=== PATIENT | male | born 1985 | race Two or more races ===

== ENCOUNTER 2023-09-14 19:52 | Emergency (ER) | payer SELFPAY ==
[~2023-09-14] VITALS: Ht 162.6 cm; Wt 65.9 kg
[2023-09-14 21:00] LABS: BASOPHILS % (AUTO) 0.6 % (0.0-2.0); EOSINOPHILS % (AUTO) 0.7 % (1.0-6.0); HEMATOCRIT 38.4 % (41-53); LYMPHOCYTES # (AUTO) 3.4 K/uL (1.0-4.8); MEAN CORPUSCULAR HEMOGLOBIN 34.3 pg (26.0-34.0); MEAN CORPUSCULAR HGB CONC 33.9 G/dL (31.0-37.0); MEAN CORPUSCULAR VOLUME 101 fL (80-100); MONOCYTES # (AUTO) 0.7 K/uL (0.1-1.0); MONOCYTES % (AUTO) 12.6 % (2.0-9.0); NEUTROPHILS # (AUTO) 1.6 K/uL (1.8-7.7); NEUTROPHILS % (AUTO) 28.1 % (40.0-70.0); PLATELET COUNT (AUTO) 159 K/uL (150-450); RED BLOOD CELL COUNT(AUTO) 3.79 MIL/uL (4.50-5.90); RED CELL DISTRIBUTION WIDTH 14.4 % (11.5-14.5); WHITE BLOOD COUNT (AUTO) 5.8 K/uL (4.5-11.0)
[2023-09-14 21:14] LABS: ANION GAP 7 mmol/L (8-16); CALCIUM, TOTAL 8.4 mg/dL (8.8-10.5); CARBON DIOXIDE 26 mmol/L (22-29); CHLORIDE 107 mmol/L (98-107); CREATININE 0.59 mg/dL (0.60-1.30); GLOMERULAR FILTR. RATE CALC > 60 mL/min (>60); GLUCOSE,RANDOM 127 mg/dL (70-110); SODIUM SERUM 140 mmol/L (136-145); UREA NITROGEN, BLOOD 5 mg/dL (7-18)
[2023-09-14 21:18] LABS: ALANINE AMINOTRANSFERASE 28 U/L (12-78); ALBUMIN 3.2 g/dL (3.4-5.0); ALKALINE PHOSPHATASE 226 U/L (46-116); ASPARTATE AMINOTRANSFERASE 52 U/L (15-37); BILIRUBIN,TOTAL 0.9 mg/dL (0.1-1.0); TOTAL PROTEIN, SERUM 8.3 g/dL (6.4-8.2)
[2023-09-14 21:23] LABS: ALCOHOL, BLOOD (SERUM) 406 mg/dL (0-10)
[2023-09-14 21:53] LABS: TROPONIN I-HIGH SENSITIVITY 12 ng/L (<76)
[2023-09-14 22:31] VITALS: TEMP 98.3
[2023-09-15] MEDS ORDERED: SODIUM CHLORIDE 0.9% 1,000 ML IV ONE
[2023-09-15 05:50] VITALS: BP 107/69; PULSE 63; RESP 16
== END 2023-09-15 06:27 | disposition home or self-care (01) ==
LOC: EMS 19:53
DX: F10.229 Alcohol dependence with intoxication, unspecified (principal); Y90.9 Presence of alcohol in blood, level not specified
CPT/HCPCS: 99284; 80053; 84484; 85025; 36415; 93005; 96360; G0480; J7030

== ENCOUNTER 2025-04-07 18:56 | Inpatient (IN) | payer SELFPAY ==
[~2025-04-07] VITALS: Ht 165.1 cm; Wt 68.2 kg
[2025-04-07 19:09] VITALS: TEMP 98.1
[2025-04-07 19:34] LABS: ANION GAP 7 mmol/L (8-16); CALCIUM, TOTAL 8.1 mg/dL (8.8-10.5); CARBON DIOXIDE 29 mmol/L (22-29); CHLORIDE 108 mmol/L (98-107); CREATININE 0.55 mg/dL (0.60-1.30); GLOMERULAR FILTR. RATE CALC > 60 mL/min (>60); GLUCOSE,RANDOM 131 mg/dL (70-110); POTASSIUM 3.5 mmol/L (3.5-5.1); SODIUM SERUM 144 mmol/L (136-145); UREA NITROGEN, BLOOD 4 mg/dL (7-18)
[2025-04-07 19:35] LABS: BASOPHILS % (AUTO) 1.1 % (0.0-2.0); HEMATOCRIT 33.7 % (41-53); HEMOGLOBIN 11.5 g/dL (13.5-17.5); LYMPHOCYTES # (AUTO) 1.9 K/uL (1.0-4.8); LYMPHOCYTES % (AUTO) 45.5 % (22.0-44.0); MEAN CORPUSCULAR HEMOGLOBIN 35.9 pg (26.0-34.0); MEAN CORPUSCULAR HGB CONC 34.1 G/dL (31.0-37.0); MEAN CORPUSCULAR VOLUME 105 fL (80-100); MONOCYTES # (AUTO) 0.5 K/uL (0.1-1.0); MONOCYTES % (AUTO) 11.8 % (2.0-9.0); NEUTROPHILS # (AUTO) 1.7 K/uL (1.8-7.7); NEUTROPHILS % (AUTO) 40.6 % (40.0-70.0); PLATELET COUNT (AUTO) 69 K/uL (150-450); RED CELL DISTRIBUTION WIDTH 15.5 % (11.5-14.5); WHITE BLOOD COUNT (AUTO) 4.1 K/uL (4.5-11.0)
[2025-04-07 19:37] LABS: RBC MORPHOLOGY COMMENT ABNORMAL RBC MORPH
[2025-04-07 19:39] LABS: ALBUMIN 2.6 g/dL (3.4-5.0); BILIRUBIN,DIRECT 1.1 mg/dL (0.00-0.20); BILIRUBIN,TOTAL 1.7 mg/dL (0.1-1.0); TOTAL PROTEIN, SERUM 7.9 g/dL (6.4-8.2)
[2025-04-07] MEDS: SODIUM CHLORIDE 0.9% 1,000 ML IV ONE (20:29)
[2025-04-07] MEDS ORDERED: ONDANSETRON HCL 4 MG/2 ML VIAL IVP PRN (21:30)
[2025-04-07] MEDS ORDERED: 1: MAGNESIUM SULFATE 2 GM, MVI, ADULT NO.1 WITH VIT K 10 ML, THIAMINE 100 MG, FOLIC ACID IV SCH (22:00)
[2025-04-07] MEDS: 1: MAGNESIUM SULFATE 2 GM, MVI, ADULT NO.1 WITH VIT K 10 ML, THIAMINE 100 MG, FOLIC ACID IV SCH (22:36)
[2025-04-07] MEDS: HEPARIN SODIUM,PORCINE 5,000 UNITS/ML VIAL SQ SCH (23:09)
[2025-04-08 05:16] LABS: BASOPHILS % (AUTO) 2.6 % (0.0-2.0); EOSINOPHILS % (AUTO) 2.6 % (1.0-6.0); HEMATOCRIT 34.5 % (41-53); HEMOGLOBIN 11.7 g/dL (13.5-17.5); LYMPHOCYTES # (AUTO) 1.4 K/uL (1.0-4.8); LYMPHOCYTES % (AUTO) 48.5 % (22.0-44.0); MEAN CORPUSCULAR VOLUME 106 fL (80-100); MONOCYTES # (AUTO) 0.4 K/uL (0.1-1.0); MONOCYTES % (AUTO) 13.2 % (2.0-9.0); NEUTROPHILS # (AUTO) 0.9 K/uL (1.8-7.7); NEUTROPHILS % (AUTO) 33.1 % (40.0-70.0); PLATELET COUNT (AUTO) 68 K/uL (150-450); RED BLOOD CELL COUNT(AUTO) 3.26 MIL/uL (4.50-5.90); RED CELL DISTRIBUTION WIDTH 15.6 % (11.5-14.5); WHITE BLOOD COUNT (AUTO) 2.9 K/uL (4.5-11.0)
[2025-04-08 05:33] LABS: ANION GAP 7 mmol/L (8-16); CALCIUM, TOTAL 7.6 mg/dL (8.8-10.5); CARBON DIOXIDE 29 mmol/L (22-29); CHLORIDE 107 mmol/L (98-107); CREATININE 0.45 mg/dL (0.60-1.30); GLOMERULAR FILTR. RATE CALC > 60 mL/min (>60); GLUCOSE,RANDOM 142 mg/dL (70-110); POTASSIUM 3.1 mmol/L (3.5-5.1); SODIUM SERUM 143 mmol/L (136-145); UREA NITROGEN, BLOOD 2 mg/dL (7-18)
[2025-04-08 07:47] VITALS: BP 107/69; PULSE 68; RESP 15; O2SAT 98
[2025-04-08] MEDS: POTASSIUM CHLORIDE 20 MEQ ER TABLET PO ONE (08:00)
[2025-04-08] MEDS ORDERED: OXYGEN THERAPY IH SCH (08:00)
== END 2025-04-08 13:40 | disposition left against medical advice (07) | DRG 91 ==
LOC: EMS 19:00 → EDH 21:25 → EMS 21:44 → EDBD 21:44 → EDBEDREQ 22:33 → 6S 04-08 09:25
PROVIDERS: ADMIT Internal Medicine; ATTEND Internal Medicine
DX: G92.8 Other toxic encephalopathy (principal); J69.0 Pneumonitis due to inhalation of food and vomit; J96.01 Acute respiratory failure with hypoxia; F10.929 Alcohol use, unspecified with intoxication, unspecified; Y90.8 Blood alcohol level of 240 mg/100 ml or more; S00.12XA Contusion of left eyelid and periocular area, initial encounter; X58.XXXA Exposure to other specified factors, initial encounter; Y93.89 Activity, other specified; Y92.89 Other specified places as the place of occurrence of the external cause; Y99.8 Other external cause status
CPT/HCPCS: 70450; 71045; 80048; 80076; 83735; 85025; 96361; 96365; 99285; G0378; G0480; J1644; J3411; J3475; J3490; J7030; J7060; 36415-L1; 36415-TC

== ENCOUNTER 2025-04-21 13:43 | Emergency (ER) | payer OTHER ==
[~2025-04-21] VITALS: Ht 170.2 cm; Wt 72.1 kg
[2025-04-21 15:04] LABS: PLATELET COUNT (AUTO) 105 K/uL (150-450); RED BLOOD CELL COUNT(AUTO) 3.25 MIL/uL (4.50-5.90); RED CELL DISTRIBUTION WIDTH 14.8 % (11.5-14.5); WHITE BLOOD COUNT (AUTO) 4.0 K/uL (4.5-11.0)
[2025-04-21 15:14] LABS: CALCIUM, TOTAL 8.1 mg/dL (8.8-10.5); CREATININE 0.65 mg/dL (0.60-1.30); GLOMERULAR FILTR. RATE CALC > 60 mL/min (>60); GLUCOSE,RANDOM 124 mg/dL (70-110); SODIUM SERUM 143 mmol/L (136-145); UREA NITROGEN, BLOOD 6 mg/dL (7-18)
[2025-04-21 15:18] LABS: ASPARTATE AMINOTRANSFERASE 86.0 U/L (15-37); TOTAL PROTEIN, SERUM 7.4 g/dL (6.4-8.2)
[2025-04-21 15:21] LABS: TROPONIN I-HIGH SENSITIVITY 12 ng/L (<76)
[2025-04-21 15:34] LABS: RBC MORPHOLOGY COMMENT ABNORMAL RBC MORPH
[2025-04-21 15:57] LABS: ALCOHOL, BLOOD (SERUM) 448.0 mg/dL (0-10)
[2025-04-21 18:35] VITALS: BP 121/75; PULSE 75; RESP 16; TEMP 98.005280; O2SAT 95
== END 2025-04-21 20:35 | disposition left against medical advice (07) ==
LOC: EMS 13:46
DX: F10.129 Alcohol abuse with intoxication, unspecified (principal); K70.30 Alcoholic cirrhosis of liver without ascites; Y90.8 Blood alcohol level of 240 mg/100 ml or more
CPT/HCPCS: 99283; 80048; 80076; 83690; 84484; 85025; 36415; G0480